=== PATIENT | male | born 1980 | race Caucasian/White ===

== ENCOUNTER 2022-06-14 05:55 | Emergency (ER) | payer MEDICAID, OTHER ==
[~2022-06-14] VITALS: Ht 188 cm; Wt 100.0 kg
[~2022-06-14 05:55] MED LIST: SALI14GE TP
[2022-06-14] MEDS: LIDOCAINE HCL/PF 1% 10 MG/ML 5ML VIAL INFIL ONE (09:13)
[2022-06-14] MEDS ORDERED: IBUP-2029 MT (10:22)
[2022-06-14] MEDS ORDERED: CEPH500C2 MT (10:22)
[2022-06-14] MEDS: HYDROCODONE/ACETAMINOPHEN 5/325MG TABLET PO ONE (10:37)
[2022-06-14 10:39] VITALS: BP 136/66
== END 2022-06-14 10:40 | disposition home or self-care (01) ==
LOC: ER 05:55
DX: L02.31 Cutaneous abscess of buttock (principal)
CPT/HCPCS: 10060; 99284; J3490; Z7610

== ENCOUNTER 2022-07-17 18:10 | Emergency (ER) | payer MEDICAID ==
[~2022-07-17] VITALS: Ht 172.7 cm; Wt 84.0 kg
[~2022-07-17 18:10] MED LIST changes: +CEPH500C2 MT; +IBUP-2029 MT
[2022-07-17 18:34] VITALS: BP 133/77
[2022-07-17] MEDS ORDERED: CEPH500C2 MT (18:38)
[2022-07-17] MEDS ORDERED: IBUP-2029 MT (18:38)
== END 2022-07-17 18:45 | disposition home or self-care (01) ==
LOC: ER 18:10
DX: S60.861A Insect bite (nonvenomous) of right wrist, initial encounter (principal); L03.113 Cellulitis of right upper limb; W57.XXXA Bitten or stung by nonvenomous insect and other nonvenomous arthropods, initial encounter; Y93.89 Activity, other specified; Y92.89 Other specified places as the place of occurrence of the external cause; Y99.8 Other external cause status; Z79.899 Other long term (current) drug therapy
CPT/HCPCS: 99281; 99283

== ENCOUNTER 2022-08-28 21:40 | Emergency (ER) | payer MEDICAID ==
[~2022-08-28] VITALS: Ht 188 cm; Wt 101.0 kg
[2022-08-28 21:44] VITALS: BP 145/94
== END 2022-08-28 23:18 | disposition home or self-care (01) ==
LOC: ER 21:40
DX: K64.4 Residual hemorrhoidal skin tags (principal); Z79.899 Other long term (current) drug therapy
CPT/HCPCS: 99281

== ENCOUNTER 2022-09-13 16:44 | Emergency (ER) | payer MEDICAID ==
[~2022-09-13] VITALS: Ht 188 cm; Wt 104.0 kg
[2022-09-13 16:48] VITALS: BP 124/85
== END 2022-09-13 21:32 | disposition left against medical advice (07) ==
LOC: ER 16:44
DX: Z53.21 Procedure and treatment not carried out due to patient leaving prior to being seen by health care provider (principal)